=== PATIENT | female | born 1965 | race Caucasian/White ===

== ENCOUNTER 2020-03-16 08:50 | Outpatient (REF) | payer MEDICARE, MEDICAID, SELFPAY ==
--- NOTE | 2020-03-16 15:44 | MHC.AU.P13 ---
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 Target gain set at 80%. Occlusion compensation set to medium. Patient was pleased with the sound of the instruments. Hearing aid care and use were discussed and practiced. Patient does not wish to have them paired to her phone at this time. Recommendations: Recommendations: A hearing instrument follow-up was scheduled. Please call our clinic with any questions or concerns. Diagnosis Code(s): Primary Diagnosis: H90.3 Bilateral Sensorineural Hearing Loss Services Performed: Hearing Instrument Services: BTE-Binaural- Level 3 Hearing Aid Dispensing: Binaural Dispensing Fee Fitting (Other): Fitting/Orientation/Checking of Hearing Aid Signature: Provider: Osbaldo Salguero, [facility]-A
== END 2020-03-16 08:51 | disposition home or self-care (01) ==
LOC: HO.HAP 08:50
PROVIDERS: Visit Provider Nurse Practitioner Family
DX: H90.3 Sensorineural hearing loss, bilateral (principal)
CPT/HCPCS: 92700; V5011; V5160; V5261

== ENCOUNTER 2020-03-31 10:23 | Outpatient (REF) | payer MEDICARE, MEDICAID, SELFPAY ==
--- NOTE | 2020-03-31 10:42 | MHC.AU.P13 ---
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: Phonak Model: Audeo M70-R Serial Number: [id number] Warranty: 05/24/2023 Battery Size: Rechargeable Color: Beige Lead Nitrate Processor: 0M Type of Dome: Small Vented Dome Type of Wax Guard: CeruDisk Dispensed By: [facility] Date of Fittin03/16/2020 Left Ear: [employer] Systems [employer] Equipment Repairer: Phonak Model: Audeo M70-R Serial Number: [id number] Warranty: 05/24/2023 Battery Size: Rechargeable Color: Beige Lead Nitrate Processor: 0M Type of Dome: Small Vented Dome Dispensed By: [facility] Date of Fittin03/16/2020 Follow-Up Summary: Patient has been overall very pleased with the hearing aids. [employer] shows 13+ hours of use a day. She feels now that she had adjusted to them more, she is ready to have the volume increased. Target gain set to 90%. Patient asked for a slight bit more- increased overall gain by 1 step. Patient was pleased with the changes. She felt she could hear better, but the sound was still comfortable. Recommendations: Recommendations: Hearing instrument follow-up or maintenance as needed. Diagnosis Code(s): Primary Diagnosis: H90.3 Bilateral Sensorineural Hearing Loss Services Performed: Assorted Hearing Aid Service: No Charge Visit Signature: Provider: Osbaldo Salguero, [facility]
== END 2020-03-31 10:24 | disposition home or self-care (01) ==
LOC: HO.HAP 10:23
PROVIDERS: PCP Nurse Practitioner Family; Referring Provider Nurse Practitioner Family; Visit Provider Nurse Practitioner Family
DX: Z13.89 Encounter for screening for other disorder (principal)
CPT/HCPCS: 92700